=== PATIENT | male | born 1940 | race Caucasian/White ===

== ENCOUNTER 2016-08-13 17:07 | Inpatient (IN) | payer OTHER ==
[~2016-08-13] VITALS: Ht 172.7 cm; Wt 64.8 kg
--- NOTE | ~2016-08-13 | 2DMMODE ---
[facility] [place] [address] 2 D/M-MODE ECHOCARDIOGRAM Name: KYE LUGO Room #: 305-P [facility] IN .#: [id number] Admission: 08/13/16 Attend Phys: Jose Leal Discharge: Date of : 42 Date of Service: 08/14/16 1052 Report #: [id number] THIS REPORT FOR: //name// Transthoracic Echocardiography Ordering physician: Gabriela Bernard Referring physician: Gabriela Bernard Cabana Attendant: Indications/History: CAD, HTN, Syncope, Dyspnea. BP: 90 / 46 HR: 108bpm Height: 67in Weight: 123.7lb Study data: M-mode, complete 2D, complete spectral Doppler, and color Doppler. Location: Bedside. Routine. Image quality was adequate. 2D measurements Normal Normal LVID ED 42.6mm 36-57 IVS ED 9.6mm 6-11 LVID ES 26.9mm 23-40 LVPW ED 10.2mm 6-11 LA volume 21ml/m2 16-28 AoRoot diam 21-37 index ED LVOT diameter 22mm 18-23 Findings: Left ventricle: The cavity size was normal. Wall thickness was normal. Systolic function was normal. The estimated ejection fraction was in the range of 55% to 60%. Wall motion was normal. Right ventricle: The cavity size was normal. Systolic function was normal. Right atrium: The atrium was normal in size. Left atrium: The atrium was normal in size. Volume index: 21ml/m2 (S). Aortic valve: Structurally normal valve. Trileaflet. Doppler: There was no stenosis. No regurgitation. Peak velocity: 110.3cm/s (S). Mitral valve: Structurally normal valve. Doppler: There was no evidence for stenosis. Trivial [facility] [address] [place] [address] 2 D/M-MODE ECHOCARDIOGRAM Name: KYE LUGO Room #: 305-P [facility] IN Britt#: [id number] Admission: 08/13/16 Attend Phys: Jose Salmon Elvis Discharge: Date of : 42 Date of Service: 08/14/16 1052 Report #: [id number] regurgitation. Peak E-wave velocity: 62.1cm/s. Peak A-wave velocity: 78.8cm/s. Tricuspid valve: Structurally normal valve. Doppler: There was no evidence for stenosis. No regurgitation. Pulmonic valve: Not visualized. Doppler: There was no evidence for stenosis. No regurgitation. Pericardium: There was no pericardial effusion. Aorta: Aortic root: The aortic root was normal in size. Pulmonary artery: Pressure could not be reliably determined due to minimal or absent tricuspid insufficiency jet, but pulmonary hypertension was not suggested. Diastolic function: Normal diastolic function. Systemic veins: Inferior vena cava: The vessel was normal in size; the respirophasic diameter changes were in the normal range (= 50%). Conclusions 1. Procedure narrative: Image quality was adequate. 2. Left ventricle: Systolic function was normal. The estimated ejection fraction was in the range of 55% to 60%. <ELECTRONICALLY SIGNED> By: Marcos Cox MD, [facility] 08/14/16 1504 1052 1504 Marcos Cox MD, [facility] /[place]
--- NOTE | ~2016-08-13 | EKG ---
[place] [address] [facility] [place] [address] ELECTROCARDIOGRAM REPORT Name: FRANCO LUGOMONA Curtis Room #: 305-P ADM IN M.R.#: [id number] Admission: 08/13/16 Attend Phys: Murtaza Ely Discharge: Date of : 42 Report #: [id number] THIS REPORT FOR: //name// [facility] Test Date: 2016-08-13 Test Time: 21:29:07 Pat Name: KYE LUGO Department: Room: 305 P Gender: M Softwood Faller: Michael PLASENCIA : 1940 Requested By: Gabriela Bernard Order Number: [id number] MD: Dani Gleason Measurements Intervals [place] Rate: 104 P: 83 ND: 114 QRS: 84 QRSD: 97 T: 73 QT: 385 QTc: 507 Interpretive Statements Sinus tachycardia Probable inferior infarct, old Abnormal T, consider ischemia, anterior leads Prolonged QT interval No previous ECG available for comparison Electronically Signed On 08-14-2016 7:55:55 [employer] by Dani Gleason [email or web address] <ELECTRONICALLY SIGNED> By: Dani Gleason MD, [facility] 08/14/16 0755 28 28 Dani Gleason MD, [facility] /EPI
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
[~2016-08-13 17:07] MED LIST: ASPIRIN EC81 M1 PO; LOPRESSOR25 PO; OXYCONTIN15 MG PO; OXYCONTIN40 MG PO; PROAIR HFA8.5 GM INH; ZANTAC 150MG T150 M1 PO
[2016-08-13 20:00] VITALS: BP 102/64
[2016-08-13 21:33] LABS: ABG SAMPLE TYPE ARTERIAL; BE(vivo) 3.1 mmol/L (-2 to +3); LACTATE 1.95 mmol/L (0.5-2.0); O2(CT) 19.3 mL/dL (15.0-23.0); O2Hb 93.1 % (92.0-98.0); PCO2 49.1 mmHg (35.0-45.0); PO2 75.1 mmHg (80.0-100.0); pH 7.389 (7.360-7.450); sO2 94.8 % (92.0-98.0); tCO2 30.5 mmol/L (24.0-30.0)
[2016-08-13 21:34] LABS: STICK SITE R.BRACHIAL
[2016-08-13 22:24] LABS: HEMATOCRIT 41.3 % (42.0-52.0); HEMOGLOBIN 13.9 gm/dL (14.0-18.0); MCH 31.2 pg (26.0-34.0); MCHC 33.6 % (28.0-37.0); MCV 92.8 fL (80.0-100.0); RBC 4.45 mil/uL (4.50-6.00); RDW 14.1 % (10.5-14.5); WBC 4.7 thou/uL (4.0-11.0)
[2016-08-13 22:34] LABS: ANION GAP 8 mmol/L (7-16); BUN 28 mg/dL (7-18); CALCIUM 8.5 mg/dL (8.5-10.1); CHLORIDE 104 mmol/L (98-107); CO2 30 mmol/L (21-32); CREATININE 0.9 mg/dL (0.6-1.3); GLUCOSE 198 mg/dL (70-99); POTASSIUM 3.7 mmol/L (3.5-5.1); SODIUM 142 mmol/L (136-145)
[2016-08-13 22:55] LABS: ALBUMIN 2.2 g/dL (3.4-5.0); ALKALINE PHOSPHATASE 76 U/L (46-116); NT-PRO BRAIN NAT PEPTIDE 1876 pg/mL (<300); SGOT 32 U/L (15-37); SGPT 23 U/L (30-65); TOTAL BILIRUBIN 0.5 mg/dL (<0.1-1.0); TOTAL PROTEIN 6.6 g/dL (6.4-8.2); TROPONIN-I < 0.04 ng/mL (<0.04-0.07)
[2016-08-13] MEDS ORDERED: DILTIAZEM 24HR180 M2 PO (23:12)
[2016-08-14] VITALS: BP 111/67
[2016-08-14 03:27] VITALS: BP 105/69
[2016-08-14 04:02] VITALS: BP 105/69
[2016-08-14 06:31] LABS: HEMATOCRIT 39.3 % (42.0-52.0); MCH 30.9 pg (26.0-34.0); MCV 93.6 fL (80.0-100.0); RBC 4.2 mil/uL (4.50-6.00); RDW 14.3 % (10.5-14.5); WBC 4.4 thou/uL (4.0-11.0)
[2016-08-14 06:43] LABS: ALBUMIN 2.2 g/dL (3.4-5.0); ALKALINE PHOSPHATASE 73 U/L (46-116); ANION GAP 7 mmol/L (7-16); BUN 26 mg/dL (7-18); CALCIUM 8.6 mg/dL (8.5-10.1); CHLORIDE 104 mmol/L (98-107); CHOLESTEROL 138 mg/dL (<200); CO2 30 mmol/L (21-32); CREATININE 0.8 mg/dL (0.6-1.3); GLUCOSE 166 mg/dL (70-99); HDL CHOLESTEROL 31 mg/dL (>40); LDL CHOLESTEROL 85 mg/dL (<100); POTASSIUM 3.9 mmol/L (3.5-5.1); SGOT 23 U/L (15-37); SGPT 21 U/L (30-65); SODIUM 141 mmol/L (136-145); TC:HDL 4.5 Ratio (Not establshd); TOTAL BILIRUBIN 0.4 mg/dL (<0.1-1.0); TOTAL PROTEIN 6.5 g/dL (6.4-8.2); TRIGLYCERIDE 113 mg/dL (<150); TROPONIN-I < 0.04 ng/mL (<0.04-0.07); VLDL 23 mg/dL (<40)
[2016-08-14 08:00] VITALS: BP 90/46
[2016-08-14 16:00] VITALS: BP 128/67
[2016-08-14 20:10] VITALS: BP 104/59
[2016-08-14 22:07] LABS: GLYCOHEMOGLOBIN (HGB A1C) 5.6 % (4.8-5.6)
[2016-08-15 04:15] VITALS: BP 130/69
[2016-08-15 06:10] LABS: HEMATOCRIT 39.7 % (42.0-52.0); HEMOGLOBIN 12.8 gm/dL (14.0-18.0); MCHC 32.3 % (28.0-37.0); MCV 96.1 fL (80.0-100.0); PLATELET COUNT 221 thou/uL (150-400); RBC 4.13 mil/uL (4.50-6.00); RDW 14.4 % (10.5-14.5); WBC 5.5 thou/uL (4.0-11.0)
[2016-08-15 06:32] LABS: CALCIUM 8.4 mg/dL (8.5-10.1); CREATININE 0.7 mg/dL (0.6-1.3); POTASSIUM 4.6 mmol/L (3.5-5.1)
[2016-08-15 06:45] LABS: MANUAL DIFF YES
[2016-08-15 07:10] VITALS: BP 134/75
[2016-08-15 08:33] VITALS: BP 134/75
[2016-08-15 10:12] LABS: ABSOLUTE NEUTROPHILS 4.9 thou/uL (1.4-8.2); LARGE PLATELETS FEW; TOTAL CELL COUNT 100
[2016-08-15 15:10] VITALS: BP 151/84
[2016-08-15 15:53] VITALS: BP 151/84
[2016-08-15 20:00] VITALS: BP 166/86
[2016-08-16] VITALS (9 sets, daily range): BP systolic 94–142; BP diastolic 70–92
[2016-08-17] VITALS (7 sets, daily range): BP systolic 117–131; BP diastolic 75–85
[2016-08-17 05:31] LABS: WBC 6.6 thou/uL (4.0-11.0)
[2016-08-17 05:32] LABS: HEMATOCRIT 39.6 % (42.0-52.0); HEMOGLOBIN 12.9 gm/dL (14.0-18.0); MCH 30.9 pg (26.0-34.0); MCHC 32.6 % (28.0-37.0); MCV 94.7 fL (80.0-100.0); PLATELET COUNT 241 thou/uL (150-400); RBC 4.18 mil/uL (4.50-6.00); RDW 14.4 % (10.5-14.5)
[2016-08-17 05:34] LABS: CALCIUM 8.4 mg/dL (8.5-10.1); CREATININE 0.7 mg/dL (0.6-1.3); POTASSIUM 4.3 mmol/L (3.5-5.1)
[2016-08-17 05:35] LABS: MANUAL DIFF YES
[2016-08-17 07:24] LABS: ABSOLUTE NEUTROPHILS 5.9 thou/uL (1.4-8.2); ANISOCYTOSIS 1+; METAMYELOCYTES 1 %; MYELOCYTES 1 %; TOTAL CELL COUNT 100
[2016-08-18 04:10] VITALS: BP 132/83
[2016-08-18 06:03] LABS: HEMATOCRIT 37.6 % (42.0-52.0); HEMOGLOBIN 12.6 gm/dL (14.0-18.0); MCH 31.3 pg (26.0-34.0); MCHC 33.5 % (28.0-37.0); MCV 93.5 fL (80.0-100.0); PLATELET COUNT 239 thou/uL (150-400); RBC 4.02 mil/uL (4.50-6.00); RDW 14.1 % (10.5-14.5); WBC 6.6 thou/uL (4.0-11.0)
[2016-08-18 06:14] LABS: MANUAL DIFF YES
[2016-08-18 06:43] LABS: CALCIUM 8.4 mg/dL (8.5-10.1); CREATININE 0.6 mg/dL (0.6-1.3); POTASSIUM 4.6 mmol/L (3.5-5.1)
[2016-08-18 08:31] VITALS: BP 118/76
[2016-08-18 09:07] LABS: ABSOLUTE NEUTROPHILS 6.1 thou/uL (1.4-8.2); PLATELET ESTIMATE NORMAL; TOTAL CELL COUNT 100
[2016-08-18 12:06] VITALS: BP 116/77
[2016-08-18 13:40] VITALS: BP 147/89
[2016-08-18 15:48] VITALS: BP 117/67
[2016-08-18 20:20] VITALS: BP 113/71
[2016-08-19 03:55] VITALS: BP 110/60
[2016-08-19 08:12] VITALS: BP 131/81
[2016-08-19 11:31] VITALS: BP 127/72
[2016-08-19 16:08] VITALS: BP 125/77
[2016-08-19 20:01] VITALS: BP 118/64
[2016-08-20] VITALS (7 sets, daily range): BP systolic 101–122; BP diastolic 67–71
[2016-08-20] MEDS ORDERED: HYDROCODON-ACE1 EAC7 PO (16:06)
[2016-08-20] MEDS ORDERED: PREDNISONE 10 M10 M1 PO (16:06)
[2016-08-20] MEDS ORDERED: LEVAQUIN 750 M750 MG PO (16:06)
[2016-08-20] MEDS ORDERED: MUCINEX TA600 MG/TA1 PO (16:06)
[2016-08-20] MEDS ORDERED: DUONEB 2.5-0.5 M3 ML INH (16:08)
[2016-08-20] MEDS ORDERED: NEBULIZER MISCELL (16:08)
== END 2016-08-20 18:20 | disposition home health service (06) | DRG 871 ==
LOC: 3N 17:07
PROVIDERS: Internal Medicine Endocrinology, Diabetes & Metabolism; Nurse Practitioner
DX: A41.9 Sepsis, unspecified organism (principal); J18.9 Pneumonia, unspecified organism; J96.01 Acute respiratory failure with hypoxia; J96.02 Acute respiratory failure with hypercapnia; E43 Unspecified severe protein-calorie malnutrition; J44.1 Chronic obstructive pulmonary disease with (acute) exacerbation; J44.0 Chronic obstructive pulmonary disease with (acute) lower respiratory infection; G89.29 Other chronic pain; M54.2 Cervicalgia; R55 Syncope and collapse; R73.9 Hyperglycemia, unspecified; I11.0 Hypertensive heart disease with heart failure; I50.9 Heart failure, unspecified; E78.5 Hyperlipidemia, unspecified; I25.10 Atherosclerotic heart disease of native coronary artery without angina pectoris; F17.210 Nicotine dependence, cigarettes, uncomplicated; Z90.49 Acquired absence of other specified parts of digestive tract; Z95.1 Presence of aortocoronary bypass graft; Z88.6 Allergy status to analgesic agent; Z88.0 Allergy status to penicillin; Z68.21 Body mass index [BMI] 21.0-21.9, adult; Z80.8 Family history of malignant neoplasm of other organs or systems; Z79.82 Long term (current) use of aspirin; Z79.899 Other long term (current) drug therapy
CPT/HCPCS: 10096